=== PATIENT | female | born 1990 ===

== ENCOUNTER 2017-11-30 14:53 | Emergency (ER) | payer SELFPAY ==
[2017-11-30 15:31] VITALS: BMI 23.5
[2017-11-30 16:23] LABS: SQUAMOUS EPITHIAL < 1 /hpf (0-5); URINE BACTERIA RARE (<OCC); URINE BILIRUBIN NEGATIVE (NEGATIVE); URINE BLOOD NEGATIVE (NEGATIVE); URINE CLARITY CLEAR (Clear); URINE COLOR STRAW (YELLOW); URINE GLUCOSE (UA) NEG (Normal); URINE LEUKOCYTE ESTERASE NEG Leu/uL (Negative); URINE PROTEIN NEGATIVE (NEGATIVE); URINE UROBILINOGEN 0.2-1.0 mg/dL (0.2-1.0)
[2017-11-30] MEDS ORDERED: Lactated Ringer's 1,000 ML IV SCH (16:30)
[2017-11-30 17:04] LABS: BASO % 0.3 % (0.0-2.0); EOS # 0.1 K/uL (0.0-0.7); EOS % 1.1 % (0.0-4.0); HEMOGLOBIN 12.6 g/dL (12.0-16.0); LYMPH # 1.3 K/uL (1.0-4.3); LYMPH % 13.1 % (20.0-40.0); MEAN CELL VOLUME 100.5 fl (81.0-99.0); MEAN CORPUSCULAR HEMOGLOBIN 34.9 pg (27.0-31.0); MEAN CORPUSCULAR HGB CONC 34.7 g/dL (33.0-37.0); MEAN PLATELET VOLUME 8.2 fl (7.2-11.7); MONO # 0.4 K/uL (0.0-0.8); MONO % 4.3 % (0.0-10.0); NEUT # 8.3 K/uL (1.8-7.0); NEUT % 81.2 % (50.0-75.0); RBC 3.61 Mil/uL (3.80-5.20); RED CELL DISTRIBUTION WIDTH 12.8 % (11.5-14.5); WHITE BLOOD COUNT 10.2 K/uL (4.8-10.8)
--- NOTE | 2017-11-30 18:02 | US ---
Date of service: 11/30/2017 PROCEDURE: Ultrasound of the Kidneys HISTORY: R flank pain in COMPARISON: None available. TECHNIQUE: Sonogram of the kidneys. FINDINGS: RIGHT KIDNEY: Measures: 11.0 x 6.9 x 5.0 cm. Normal in size, contour and echogenicity. No stone, solid mass lesion the. There is moderate right-sided hydronephrosis with dilatation of the right renal collecting system and right renal pelvis. LEFT KIDNEY: Measures: 11.1 x 4.5 x 5.0 cm. Normal in size, contour and echogenicity. No stone, solid mass lesion or hydronephrosis visualized. OTHER FINDINGS: None. IMPRESSION: Right-sided moderate hydronephrosis. Mild dilatation of the left renal calices.
--- NOTE | 2017-11-30 18:35 | OBHP ---
Datetime: 11/30/2017 16:35 IP Adm Impression: , intrauterine IP Admit Plan: Observation/Evaluation; Discharge home Admit Comment, IP Provider: 27 yo female at IUP 23 wks wks present to [facility] c/o pelvic pain and R flank pain since last night. She denies any ctx, VB, LOF. She also denies fever, nausea, vomiting, dysuria, frequency though previous hx of UTI in the past. Positive movements last night. Imelda ent is from and have been in [place] 1 week. PNC: at no records with her. OBhx: G2PO, ectopic in 2013 PERSONAL FINANCIAL COUNSELOR: no hx of STD or abnormal paps PMH: none PSH: ectopic in 2013 Meds: PNV, tylenol NKDA FMH: DM in grandparents and aunt from cancer (unknown) SH: denies etoh, tobacco or drugs O: VSS NAD Lungs: CTA CVS: RRR, + s1 s2 Abd: gravid, R flank tenderness on palpation, CVA no tender no edema Speculum exam: no active bleeding, cervix closed VE: closed/ long/ high TOCO: quiet A/P: 27 yo female at IUP 23 wks with R flank abdominal pain, no active labor. - and maternal monitoring - FFN - IV fluids - cbc, ua, urine cx - for renal US Case seen and examined with Dr Hernandez. Bharat PGY 2 OB Hsopitalist Addendum: Pt seen and examined by me. Agree w/ above. 27 yo at 24+2 wks f rom w/ c/o rt flank and suprapubic pain. Pt had mild rt CVA tenderness and suprapubic tenderness on exam. VE: closed/ thick/long. FHT reassuring. No ctxns on monitor. Ua negative, WBC and Hgb nl . Urine cx pending. Renal u/s revealed rt-sided moderate hydronephrosis. Mild dilatation of the le ft renal calices. Pt given IVF and tylenol. Pain may be musculoskeletal. Pt discharged home w/ str ict precautions to return to [facility] if N/V/ fever/ worsening pain. Pt is not going back to [place] until december. Rec that she f/u in the clinic. Pt given the #. (ES) General - PN: Normal FHR - Baseline A Provider: 130 Membranes, Provider: Intact Contraction Comments Provider: quiet Vital Signs Provider: Reviewed; Within Normal Limits IP Chief Complaint: Maternal discomfort NICHD Variability Prov Fetus A: Moderate 6-25bpm NICHD Accel Fetus A IP Provider: [id number] FHR Category Provider Fetus A: Category I NICHD Decel Fetus A IP Provider: None Dilatation, Provider: 0 Effacement, Provider: 0 Station, Provider: -3
[2017-11-30 22:46] VITALS: BP 106/71; PULSE 94; O2SAT 100
== END 2017-11-30 18:40 | disposition home or self-care (01) ==
LOC: H.EROB2 14:53
DX: O26.92 Pregnancy related conditions, unspecified, second trimester (principal); R10.2 Pelvic and perineal pain; O09.12 Supervision of pregnancy with history of ectopic pregnancy, second trimester; Z3A.23 23 weeks gestation of pregnancy; Z87.440 Personal history of urinary (tract) infections
CPT/HCPCS: 76770; 81003; 85025; 87086; 99284; J7120